=== PATIENT | female | born 1985 | race Caucasian/White ===

== ENCOUNTER 2018-08-30 14:21 | Observation (INO) ==
[2018-08-30 15:38] LABS: Basophils % 0.3 % (0.1-2.0); Eosinophils # 0.1 K/mm3 (0.0-0.4); Eosinophils % 1.1 % (0.1-12.0); Hematocrit 47.3 % (37.0-47.0); Hemoglobin 15.1 g/dL (12.2-16.2); Lymphocytes # 1.4 K/mm3 (0.7-4.5); Lymphocytes % 13.4 % (10-50); Mean Corpuscular HGB Conc 31.9 g/dL (31.8-35.4); Mean Corpuscular Hemoglobin 28.3 pg (27.0-31.2); Mean Corpuscular Volume 88.7 fl (81-99); Mean Platelet Volume 8.5 fl (7.4-10.4); Monocytes # 0.7 K/mm3 (0.1-1.0); Monocytes % 7.2 % (1.7-9.3); Neutrophils % 78.1 % (37.0-80.0); Platelet Count 287 K/mm3 (142-424); Red Blood Count 5.34 M/mm3 (4.20-5.40); Red Cell Distribution Width 14.4 % (11.5-17.5); White Blood Count 10.3 K/mm3 (4.8-10.8)
[2018-08-30 15:57] LABS: Albumin Level 3.5 gm/dL (3.4-5.0); Albumin/Globulin Ratio 0.7 (1.1-1.8); Anion Gap 10.8 mEq/L (5-15); Bilirubin,Total 1.3 mg/dL (0.2-1.0); Calcium 8.6 mg/dL (8.5-10.1); Globulin 5.1 gm/dl (1.3-3.2); Potassium 3.8 mmoL/L (3.5-5.1); Total Protein,Serum 8.6 gm/dL (6.4-8.2)
--- NOTE | 2018-08-30 20:50 | History & Physical Report ---
*Admission Date: 08/30/18 <Alina Nolan 08/30/18 20:59> *Chief complaint: hypoxia, nausea, vomiting <Alina Nolan 08/30/18 20:59> *History of present illness: Ms. Jolly is a 32-year-old female who has not been to [facility] in some time. She does currently go to a methadone clinic and this is her only medication. She does have a history of asthma and used to take Advair, however she has not had any asthma controller medicine for years. She continues to smoke. She states on Monday she began with a cough, fever, and shortness of breath. She then began having vomiting, diarrhea, and nausea. She lives with her sister and her sister states that she could hardly get her awake yesterday. The vomiting and diarrhea have subsided but the patient still felt very weak and was extremely short of breath. She presented to the office of [facility] today for evaluation and her oxygen ranged from 83-86% on room air. She was admitted for further evaluation and treatment. <Alina Nolan 08/30/18 20:59> [facility] History Medical History: Reports:: Asthma, Gall Bladder Disease <Alina Nolan 08/30/18 20:59> Other Surgeries: Yes: Cholecystectomy <Alina Nolan 08/30/18 20:59> - *Social History Smoking Status: Current every day smoker <Alina Nolan 08/30/18 20:59> Tobacco Type: cigarettes <Alina Nolan 08/30/18 20:59> # Packs/Day (cigarettes): 1 <Alina Nolan 08/30/18 20:59> Alcohol Intake: never <Alina Nolan 08/30/18 20:59> Substance Use Type: heroin <Alina Nolan 08/30/18 20:59> Occupational Status: employed <Alina Nolan 08/30/18 20:59> - Psychiatric History Expresses thoughts of harming self/others: None <Alina Nolan 08/30/18 20:59> Suicide Plan Description: No Plan <Alina Nolan 08/30/18 20:59> *Family Hx:: Coronary Artery Disease, Diabetes, Hyperlipidemia <Alina Nolan 08/30/18 20:59> Review of Systems - Constitutional Reports body ache(s), Reports chills, Reports fever(s), Reports weakness <Alina Nolan 08/30/18 20:59> - Eyes Denies blurry vision, Denies double vision <Alina Nolan 08/30/18 20:59> - ENT Reports nasal congestion, Reports sore throat <Alina Nolan 08/30/18 20:59> - *Cardiovascular Reports chest pain, Denies irregular heart rhythm <Alina Nolan 08/30/18 20:59> - *Respiratory Reports cough, Reports shortness of breath, Reports wheezing <[facility] 08/30/18 20:59> - *Gastrointestinal Reports abdominal pain, Reports loose stools, Reports nausea, Reports vomiting <Alina Nolan 08/30/18 20:59> - *Genitourinary Denies difficulty urinating, Denies painful urination <Alina Nolan 08/30/18 20:59> - *Musculoskeletal Reports body aches, Denies joint pain <Alina Nolan 08/30/18 20:59> - *Neurologic Reports dizziness, Reports weakness <Alina Nolan 08/30/18 20:59> Meds Home Medications Medication Instructions Recorded Confirmed Type Methadone HCl 100 mg PO DAILY 08/30/18 08/30/18 History <Rickie Sam - 08/31/18 00:37> Allergies Allergy/AdvReac Type Severity Reaction Status Date / Time morphine [MORPHINE] Allergy Intermediate Verified 08/30/18 15:19 <Rickie Sam - 08/31/18 00:37> Exam Vital signs and Labs for Last 24 Hours: Temp Pulse Resp BP Pulse Ox 98.0 F 102 H 18 128/75 90 L 08/30/18 19:51 08/30/18 20:00 08/30/18 19:51 08/30/18 19:51 08/30/18 21:21 Laboratory Results - last 24 hr 08/30/18 15:25: WBC 10.3, RBC 5.34, Hgb 15.1, Hct 47.3 H, MCV 88.7, MCH 28.3, MCHC 31.9, RDW 14.4, Plt Count 287, MPV 8.5, Neut % (Auto) 78.1, Lymph % (Auto) 13.4, [place] % (Auto) 7.2, Eos % (Auto) 1.1, Baso % (Auto) 0.3, Neut # (Auto) 8.0 H, Lymph # (Auto) 1.4, [place] # (Auto) 0.7, Eos # (Auto) 0.1, Baso # (Auto) 0.0 08/30/18 15:25: Sodium 138, Potassium 3.8, Chloride 98, Carbon Dioxide 33 H, Anion Gap 10.8, BUN 12, Creatinine 0.73, Estimated Creat Clear 166, Estimated GFR 92, Est GFR ( Amer) 111, Glucose 88, Calcium 8.6, Total Bilirubin 1.3 H, AST 14 L, ALT 29, Alkaline Phosphatase 94, Total Protein 8.6 H, Albumin 3.5, Globulin 5.1 H, Albumin/Globulin Ratio 0.7 L 08/30/18 15:25: D-Dimer < 100 <Rickie Sam - 08/31/18 00:37> Temp Pulse Resp BP Pulse Ox 98.0 F 102 H 18 128/75 91 L 08/30/18 19:51 08/30/18 19:51 08/30/18 19:51 08/30/18 19:51 08/30/18 19:51 Laboratory Results - last 24 hr 08/30/18 15:25: WBC 10.3, RBC 5.34, Hgb 15.1, Hct 47.3 H, MCV 88.7, MCH 28.3, MCHC 31.9, RDW 14.4, Plt Count 287, MPV 8.5, Neut % (Auto) 78.1, Lymph % (Auto) 13.4, [place] % (Auto) 7.2, Eos % (Auto) 1.1, Baso % (Auto) 0.3, Neut # (Auto) 8.0 H, Lymph # (Auto) 1.4, [place] # (Auto) 0.7, Eos # (Auto) 0.1, Baso # (Auto) 0.0 08/30/18 15:25: Sodium 138, Potassium 3.8, Chloride 98, Carbon Dioxide 33 H, Anion Gap 10.8, BUN 12, Creatinine 0.73, Estimated Creat Clear 166, Estimated GFR 92, Est GFR ( Amer) 111, Glucose 88, Calcium 8.6, Total Bilirubin 1.3 H, AST 14 L, ALT 29, Alkaline Phosphatase 94, Total Protein 8.6 H, Albumin 3.5, Globulin 5.1 H, Albumin/Globulin Ratio 0.7 L 08/30/18 15:25: D-Dimer < 100 <Alina Nolan - 08/30/18 20:59> I & O for Last 24 hours: Intake & Output 08/28/18 08/29/18 08/30/18 08/31/18 11:59 11:59 11:59 11:59 Intake Total 480 / 480 Balance 480 / 480 Weight 211 lb <Rickie Sam - 08/31/18 00:37> Intake & Output 08/28/18 08/29/18 08/30/18 08/31/18 11:59 11:59 11:59 11:59 Intake Total 480 / 480 Balance 480 / 480 [facility] 20:59> - Constitutional no acute distress <[facility] 08/30/18 20:59> - *Routine HEENT Exam Head: Present: normocephalic <[facility] 08/30/18 20:59> Eye: Present: EOMI, PERRL <[facility] 08/30/18 20:59> ENT: Present: mucous membranes dry <[facility] 08/30/18 20:59> - *Routine Neck Exam Present: supple. Absent: lymphadenopathy <[facility] 08/30/18 20:59> - *Routine Respiratory Exam Present: rhonchi, wheezes. Absent: crackles <[facility] 08/30/18 20:59> - *Routine Cardiovascular Exam Present: RRR, tachycardia <[facility] 08/30/18 20:59> - *Routine Abdominal Exam Present: soft, normoactive bowel sounds. Absent: tenderness <Alina Nolan 08/30/18 20:59> - *Routine Extremities Exam Absent: cyanosis, clubbing, edema <Alina Nolan 08/30/18 20:59> - *Routine Skin Exam Present: warm. Absent: rash <Alina Nolan - 08/30/18 20:59> - *Routine Neurological Exam Present: alert, oriented X3 <Alina Nolan - 08/30/18 20:59> H&P: Result - Impressions CXR - Patchy atelectasis or infiltrate in the left lower lobe <Alina Nolan - 08/30/18 20:59> Assessment and Plan (1) Pneumonia Current visit: Yes Status: Acute Category: Medical Code(s): J18.9 - Pneumonia, unspecified organism (2) Asthma Current visit: Yes Status: Chronic Category: Medical Code(s): J45.909 - Unspecified asthma, uncomplicated (3) Hypoxia Current visit: Yes Status: Acute Category: Medical Code(s): R09.02 - Hypoxemia (4) Gastroenteritis Current visit: Yes Status: Acute Category: Medical Code(s): K52.9 - Noninfective gastroenteritis and colitis, unspecified (5) History of drug abuse Current visit: Yes Status: Chronic Category: Medical Code(s): Z87.898 - Personal history of other specified conditions (6) Tobacco abuse Current visit: Yes Status: Chronic Category: Medical Code(s): Z72.0 - Tobacco use <Rickie Sam - 08/31/18 00:37> (1) Gastroenteritis Current visit: Yes Status: Acute Category: Medical Code(s): K52.9 - Noninfective gastroenteritis and colitis, unspecified (2) History of drug abuse Current visit: Yes Status: Chronic Category: Medical Code(s): Z87.898 - Personal history of other specified conditions (3) Pneumonia Current visit: Yes Status: Acute Category: Medical Code(s): J18.9 - Pneumonia, unspecified organism (4) Asthma Current visit: Yes Status: Chronic Category: Medical Code(s): J45.909 - Unspecified asthma, uncomplicated (5) Hypoxia Current visit: Yes Status: Acute Category: Medical Code(s): R09.02 - Hypoxemia (6) Tobacco abuse Current visit: Yes Status: Chronic Category: Medical Code(s): Z72.0 - Tobacco use <Alina Nolan - 08/30/18 20:46> - Assessment and plan all Dx Assessment and Plan for all problems:: Patient seen and examined this evening. SHe is breathing a little better since admission. Concur with above assessment and plan. <Rickie Sam - 08/31/18 00:37> Patient has been started on abx, steroids, nebs, oxygen and antiemetics. CXR suggests a pneumonia. Will await sputum and blood cultures. Will also get a respiratory panel. <Alina Nolan - 08/30/18 20:59>
[2018-08-31 06:17] LABS: Basophils % 0.1 % (0.1-2.0); Eosinophils % 0.2 % (0.1-12.0); Hematocrit 42.6 % (37.0-47.0); Lymphocytes # 0.8 K/mm3 (0.7-4.5); Lymphocytes % 10.5 % (10-50); Mean Corpuscular Hemoglobin 27.9 pg (27.0-31.2); Mean Corpuscular Volume 89.8 fl (81-99); Mean Platelet Volume 8.6 fl (7.4-10.4); Monocytes # 0.3 K/mm3 (0.1-1.0); Monocytes % 3.8 % (1.7-9.3); Neutrophils # 6.6 K/mm3 (1.8-7.8); Neutrophils % 85.5 % (37.0-80.0); Platelet Count 262 K/mm3 (142-424); Red Blood Count 4.75 M/mm3 (4.20-5.40); Red Cell Distribution Width 14.4 % (11.5-17.5); White Blood Count 7.8 K/mm3 (4.8-10.8)
[2018-08-31 06:21] LABS: Hemoglobin 13.3 g/dL (12.2-16.2)
--- NOTE | 2018-08-31 07:47 | Pharmacy Consult Notes ---
[facility] Pharmacy VTE Monitoring - Patient Demographics Admission date: 08/30/18 Report Date: 08/31/18 Time: 07:47 Allergies/Adverse Reactions: Patient Allergies morphine [MORPHINE] Allergy (Intermediate, Verified 08/30/18 15:19) Height: 1.65 m Weight: 95.283 kg Patient Problems: Current Active Problems Pneumonia (Acute) Asthma (Chronic) History of drug abuse (Chronic) Hypoxia (Acute) Gastroenteritis (Acute) Tobacco abuse (Chronic) - VTE Risk Labs: VTE Related Lab Results Hgb 13.3 g/dL (12.2-16.2) D 08/31/18 05:29 Hct 42.6 % (37.0-47.0) 08/31/18 05:29 Plt Count 262 K/mm3 (142-424) 08/31/18 05:29 BUN 12 mg/dL (7-18) 08/30/18 15:25 Creatinine 0.73 mg/dL (0.55-1.02) 08/30/18 15:25 Estimated Creat Clear 166 mL/min (50-200) 08/30/18 15:25 Clinical Trial Participant: No - Prophylaxis VTE Prophylaxis Ordered?: Yes Types of VTE Prophylaxis: TEDS Knee High Location of Applied Device: Bilateral Lower Extremeties
[2018-08-31 07:57] LABS: Lymphocytes % 9 % (10-50); Monocytes % 3 % (2-9); Neutrophils % 88 % (42-76); Total Cells Counted 100
--- NOTE | 2018-08-31 08:30 | Progress Note ---
<Alina Nolan - Last Filed: 08/31/18 08:25> Internal Medicine - PN: Subj *Date: 08/31/18 *Time: 08:26 Interval history: Patient states she is feeling better today. She is still wheezing and short of breath. She still has a cough. She denies any nausea, vomiting, or diarrhea. She did eat this am and did rest last night. Exam Vital signs and Labs for Last 24 Hours: Temp Pulse Resp BP Pulse Ox 98.1 F 85 19 108/58 L 90 L 08/31/18 00:00 08/31/18 06:45 08/31/18 00:00 08/31/18 00:00 08/31/18 06:45 Laboratory Results - last 24 hr 08/30/18 15:25: WBC 10.3, RBC 5.34, Hgb 15.1, Hct 47.3 H, MCV 88.7, MCH 28.3, MCHC 31.9, RDW 14.4, Plt Count 287, MPV 8.5, Neut % (Auto) 78.1, Lymph % (Auto) 13.4, [place] % (Auto) 7.2, Eos % (Auto) 1.1, Baso % (Auto) 0.3, Neut # (Auto) 8.0 H, Lymph # (Auto) 1.4, [place] # (Auto) 0.7, Eos # (Auto) 0.1, Baso # (Auto) 0.0 08/30/18 15:25: Sodium 138, Potassium 3.8, Chloride 98, Carbon Dioxide 33 H, Anion Gap 10.8, BUN 12, Creatinine 0.73, Estimated Creat Clear 166, Estimated GFR 92, Est GFR ( Amer) 111, Glucose 88, Calcium 8.6, Total Bilirubin 1.3 H, AST 14 L, ALT 29, Alkaline Phosphatase 94, Total Protein 8.6 H, Albumin 3.5, Globulin 5.1 H, Albumin/Globulin Ratio 0.7 L 08/30/18 15:25: D-Dimer < 100 08/31/18 05:29: WBC 7.8, RBC 4.75, Hgb 13.3 D, Hct 42.6, MCV 89.8, MCH 27.9, MCHC 31.0 L, RDW 14.4, Plt Count 262, MPV 8.6, Neut % (Auto) 85.5 H, Lymph % (Auto) 10.5, [place] % (Auto) 3.8, Eos % (Auto) 0.2, Baso % (Auto) 0.1, Neut # (Auto) 6.6, Lymph # (Auto) 0.8, [place] # (Auto) 0.3, Eos # (Auto) 0.0, Baso # (Auto) 0.0, Total Counted 100, Neutrophils % (Manual) 88 H, Lymphocytes % (Manual) 9 L, Monocytes % (Manual) 3, Platelet Estimate Normal, RBC Morphology Not Reportable I & O for Last 24 hours: Intake & Output 08/28/18 08/29/18 08/30/18 08/31/18 11:59 11:59 11:59 11:59 Intake Total 2434 / 2434 Balance 2434 / 2434 Weight 210 lb 1 oz - Constitutional no acute distress - *Routine Respiratory Exam Present: rhonchi, wheezes - *Routine Cardiovascular Exam Present: RRR - *Routine Abdominal Exam Present: soft, normoactive bowel sounds. Absent: tenderness - *Routine Extremities Exam Absent: cyanosis, clubbing, edema Assessment and Plan (1) Pneumonia Current visit: Yes Status: Acute Category: Medical Code(s): J18.9 - Pneumonia, unspecified organism (2) Asthma Current visit: Yes Status: Chronic Category: Medical Code(s): J45.909 - Unspecified asthma, uncomplicated (3) Hypoxia Current visit: Yes Status: Acute Category: Medical Code(s): R09.02 - Hypoxemia (4) Gastroenteritis Current visit: Yes Status: Acute Category: Medical Code(s): K52.9 - Noninfective gastroenteritis and colitis, unspecified (5) History of drug abuse Current visit: Yes Status: Chronic Category: Medical Code(s): Z87.898 - Personal history of other specified conditions (6) Tobacco abuse Current visit: Yes Status: Chronic Category: Medical Code(s): Z72.0 - Tobacco use - Assessment and plan all Dx Assessment and Plan for all problems:: Patient is improving. We will continue current treatment. Still awaiting PCR respiratory panel. Will start patient on her methadone daily. <Rickie Sam - Last Filed: 08/31/18 23:41> Exam Vital signs and Labs for Last 24 Hours: Temp Pulse Resp BP Pulse Ox 97.9 F 97 H 20 127/80 97 08/31/18 20:00 08/31/18 20:00 08/31/18 20:00 08/31/18 20:00 08/31/18 20:00 Laboratory Results - last 24 hr 08/31/18 05:29: WBC 7.8, RBC 4.75, Hgb 13.3 D, Hct 42.6, MCV 89.8, MCH 27.9, MCHC 31.0 L, RDW 14.4, Plt Count 262, MPV 8.6, Neut % (Auto) 85.5 H, Lymph % (Auto) 10.5, [place] % (Auto) 3.8, Eos % (Auto) 0.2, Baso % (Auto) 0.1, Neut # (Auto) 6.6, Lymph # (Auto) 0.8, [place] # (Auto) 0.3, Eos # (Auto) 0.0, Baso # (Auto) 0.0, Total Counted 100, Neutrophils % (Manual) 88 H, Lymphocytes % (Manual) 9 L, Monocytes % (Manual) 3, Platelet Estimate Normal, RBC Morphology Not Reportable 08/31/18 10:15: Chlamy pneumoniae PCR Not detected, Adenovirus (PCR) Not detected, B. pertussis DNA (PCR) Not detected, Coronavirus OC43 (PCR) Not detected, Coronavirus HKU1 (PCR) Not detected, Coronavirus 229E (PCR) Not detected, Coronavirus NL63 (PCR) Not detected, Human Metapneumovir PCR Not detected, Influenza A (H1) PCR Not detected, Influ A (H1N1/09) PCR Not detected, Influenza A (H3) PCR Not detected, Influenza Type A (PCR) Not detected, Influenza Type B (PCR) Not detected, M. pneumoniae (PCR) Not detected, Parainfluenza 1 (PCR) Not detected, Parainfluenza 2 (PCR) Not detected, Parainfluenza 3 (PCR) Not detected, Parainfluenza 4 (PCR) Not detected, RSV (PCR) Not detected, Entero/Rhino (PCR) Detected A I & O for Last 24 hours: Intake & Output 08/29/18 08/30/18 08/31/18 09/01/18 11:59 11:59 11:59 11:59 Intake Total 2913 / 2913 Balance 2913 / 2913 Weight 210 lb 1 oz Assessment and Plan (1) Pneumonia Current visit: Yes Status: Acute Category: Medical Code(s): J18.9 - Pneumonia, unspecified organism (2) Asthma Current visit: Yes Status: Chronic Category: Medical Code(s): J45.909 - Unspecified asthma, uncomplicated (3) Hypoxia Current visit: Yes Status: Acute Category: Medical Code(s): R09.02 - Hypoxemia (4) Gastroenteritis Current visit: Yes Status: Acute Category: Medical Code(s): K52.9 - Noninfective gastroenteritis and colitis, unspecified (5) History of drug abuse Current visit: Yes Status: Chronic Category: Medical Code(s): Z87.898 - Personal history of other specified conditions (6) Tobacco abuse Current visit: Yes Status: Chronic Category: Medical Code(s): Z72.0 - Tobacco use - Assessment and plan all Dx Assessment and Plan for all problems:: Patient seen and examined this AM. No new complaints. Lungs with bilateral coarse rhonchi and fewer wheezes. Will continue same pending cultures and PCR.
[2018-08-31 10:25] LABS: Coronavirus 229E Not Detected (NotDetected); Coronavirus NL63 Not Detected (NotDetected); Coronavirus OC43 Not Detected (NotDetected); Coronovirus HKU1,PCR Not Detected (NotDetected)
--- NOTE | 2018-09-01 08:44 | Progress Note ---
Internal Medicine - PN: Subj *Date: 09/01/18 *Time: 08:41 Interval history: She has some issues with upset stomach and diarrhea yesterday. No vomiting. She has not had much appetite. Denies abdominal pain. She feels that she is breathing better. She still has some cough which is mostly nonproductive and has not been able to submit a sputum specimen. She is still hypoxic on room air. Exam Vital signs and Labs for Last 24 Hours: Temp Pulse Resp BP Pulse Ox 97.5 F L 79 20 131/86 96 09/01/18 08:00 09/01/18 08:00 09/01/18 08:00 09/01/18 08:00 09/01/18 08:00 Laboratory Results - last 24 hr 08/31/18 10:15: Chlamy pneumoniae PCR Not detected, Adenovirus (PCR) Not detected, B. pertussis DNA (PCR) Not detected, Coronavirus OC43 (PCR) Not detected, Coronavirus HKU1 (PCR) Not detected, Coronavirus 229E (PCR) Not detected, Coronavirus NL63 (PCR) Not detected, Human Metapneumovir PCR Not detected, Influenza A (H1) PCR Not detected, Influ A (H1N1/09) PCR Not detected, Influenza A (H3) PCR Not detected, Influenza Type A (PCR) Not detected, Influenza Type B (PCR) Not detected, M. pneumoniae (PCR) Not detected, Parainfluenza 1 (PCR) Not detected, Parainfluenza 2 (PCR) Not detected, Parainfluenza 3 (PCR) Not detected, Parainfluenza 4 (PCR) Not detected, RSV (PCR) Not detected, Entero/Rhino (PCR) Detected A I & O for Last 24 hours: Intake & Output 08/29/18 08/30/18 08/31/18 09/01/18 11:59 11:59 11:59 11:59 Intake Total 4117 / 4117 2355 / 2355 Balance 4117 / 4117 2355 / 2355 Weight 210 lb 1 oz Narrative: She is sitting up in bed alert and oriented and in no respiratory distress. Color is normal. Chest reveals improved breath sounds with persistent bilateral rhonchi and only a few faint wheezes. Assessment and Plan (1) Pneumonia Current visit: Yes Status: Acute Category: Medical Code(s): J18.9 - Pneumonia, unspecified organism (2) Asthma with acute exacerbation Current visit: Yes Status: Acute Category: Medical Code(s): J45.901 - Unspecified asthma with (acute) exacerbation (3) Hypoxia Current visit: Yes Status: Acute Category: Medical Code(s): R09.02 - Hypoxemia (4) Gastroenteritis Current visit: Yes Status: Acute Category: Medical Code(s): K52.9 - Noninfective gastroenteritis and colitis, unspecified (5) History of drug abuse Current visit: Yes Status: Chronic Category: Medical Code(s): Z87.898 - Personal history of other specified conditions (6) Tobacco abuse Current visit: Yes Status: Chronic Category: Medical Code(s): Z72.0 - Tobacco use - Assessment and plan all Dx Assessment and Plan for all problems:: Continue current antibiotics. Switch to oral steroids. Attempt to wean to room oxygen. Discontinue IV fluids.
--- NOTE | 2018-09-02 08:30 | Progress Note ---
Internal Medicine - PN: Subj Interval history: She was weaned to room air yesterday with sats staying in the mid 90s. She still has a dry cough. She is tolerating activity in the room. She is eager to go Exam Vital signs and Labs for Last 24 Hours: Temp Pulse Resp BP Pulse Ox 97.3 F L 74 17 148/99 H 97 09/02/18 08:00 09/02/18 08:00 09/02/18 08:00 09/02/18 08:00 09/02/18 08:00 I & O for Last 24 hours: Intake & Output 08/30/18 08/31/18 09/01/18 09/02/18 11:59 11:59 11:59 11:59 Intake Total 4117 / 4117 2355 / 2355 2171 / 2171 Balance 4117 / 4117 2355 / 2355 2171 / 2171 Weight 210 lb 1 oz Microbiology Reports for the Last 24 Hours: Microbiology 08/30/18 17:37 Blood Blood Culture - Preliminary NO GROWTH AFTER 48 HOURS 08/30/18 17:30 Blood Blood Culture - Preliminary NO GROWTH AFTER 48 HOURS Narrative: No respiratory distress. Color is normal. Chest reveals bilateral wheezes and a few rhonchi. Assessment and Plan (1) Pneumonia Current visit: Yes Status: Acute Category: Medical Code(s): J18.9 - Pneumonia, unspecified organism (2) Asthma with acute exacerbation Current visit: Yes Status: Acute Category: Medical Code(s): J45.901 - Unspecified asthma with (acute) exacerbation (3) Hypoxia Current visit: Yes Status: Acute Category: Medical Code(s): R09.02 - Hypoxemia (4) Gastroenteritis Current visit: Yes Status: Acute Category: Medical Code(s): K52.9 - Noninfective gastroenteritis and colitis, unspecified (5) History of drug abuse Current visit: Yes Status: Chronic Category: Medical Code(s): Z87.898 - Personal history of other specified conditions (6) Tobacco abuse Current visit: Yes Status: Chronic Category: Medical Code(s): Z72.0 - Tobacco use - Assessment and plan all Dx Assessment and Plan for all problems:: She will be discharged home. She will continue on antibiotics and oral steroids. Will remain off work. She will follow-up in the office in 2 days for recheck.
--- NOTE | 2018-09-03 11:28 | Discharge Summary ---
General - General Admission date:: 08/30/18 Discharge date: 09/02/18 HPI HPI: Ms. Jolly is a 32-year-old female who has not been to [facility] in some time. She does currently go to a methadone clinic and this is her only medication. She does have a history of asthma and used to take Advair, however she has not had any asthma controller medicine for years. She continues to smoke. She states on Monday she began with a cough, fever, and shortness of breath. She then began having vomiting, diarrhea, and nausea. She lives with her sister and her sister states that she could hardly get her awake yesterday. The vomiting and diarrhea have subsided but the patient still felt very weak and was extremely short of breath. She presented to the office of [facility] today for evaluation and her oxygen ranged from 83-86% on room air. She was admitted for further evaluation and treatment. Hospital Course Hospital Course: The patient's chest x-ray showed a left lower lobe pneumonia. She was started on antibiotics, steroids, nebs, oxygen, and anti-medics. Sputum and blood cultures were ordered as well as a respiratory panel. Her nausea and vomiting resolved. Her PCR respiratory panel was positive for entero/rhinovirus. Her blood cultures were negative. She was able to be weaned from IV to oral steroids. Her IV fluids were discontinued and she was weaned to room air oxygen. She was able to tolerate activity in her room and was anxious to go home. She was stable to be discharged on steroids and antibiotics and will need to follow-up in the office in 2 days. Objective Vital signs: Temp Pulse Resp BP Pulse Ox 97.3 F L 74 17 148/99 H 97 09/02/18 08:00 09/02/18 08:00 09/02/18 08:00 09/02/18 08:00 09/02/18 08:00 Narrative: - Constitutional no acute distress - *Routine HEENT Exam Head: Present: normocephalic Eye: Present: EOMI, PERRL ENT: Present: mucous membranes dry - *Routine Neck Exam Present: supple. Absent: lymphadenopathy - *Routine Respiratory Exam Present: rhonchi, wheezes. Absent: crackles - *Routine Cardiovascular Exam Present: RRR, tachycardia - *Routine Abdominal Exam Present: soft, normoactive bowel sounds. Absent: tenderness - *Routine Extremities Exam Absent: cyanosis, clubbing, edema - *Routine Skin Exam Present: warm. Absent: rash - *Routine Neurological Exam Present: alert, oriented X3 Results Labs on day of discharge: Preliminary micro results at discharge 08/30/18 17:37 Blood Culture - Preliminary Blood NO GROWTH AFTER 48 HOURS 08/30/18 17:30 Blood Culture - Preliminary Blood NO GROWTH AFTER 48 HOURS DS: Diagnosis - Discharge Diagnosis (1) Pneumonia Status: Acute (2) Asthma with acute exacerbation Status: Acute (3) Hypoxia Status: Acute (4) Gastroenteritis Status: Acute (5) History of drug abuse Status: Chronic (6) Tobacco abuse Status: Chronic (7) Rhinovirus Status: Acute (8) Asthma Status: Chronic Discharge Plan - Patient Discharge Instructions ACTIVITY: Limited activity (remain off work until followed up in office) DIET: continue same diet Additional Instructions: no work until after follow up with dr. sam. make appointment for the 11th Patient Instructions: DI for Asthma -- Adult, DI for Pneumonia -- Adult - Follow up Plan Follow up with: Rickie Sam MD [Primary Care Provider] - 09/04/18 Disposition: Home, Self-Intermediate Medications: Home Medications Medication Instructions Recorded Confirmed Type Methadone HCl 100 mg PO DAILY 08/30/18 08/30/18 History Prescriptions/Medication Reconciliation: New Benzonatate [Benzonatate 200mg Cap] 200 mg PO Q6HP PRN #24 cap PRN Reason: Cough cefUROXime axetil [Ceftin 500mg Tab (GEQ)] 500 mg PO BID #14 tab predniSONE [Prednisone 20mg Tab] 20 mg PO DIRECTED #18 tab Albuterol Sulfate [Proventil-HFA 90mcg/puff Inh] 2 puffs IH QID #1 inh Continue Methadone HCl 100 mg PO DAILY
== END 2018-09-02 11:30 | disposition home or self-care (01) ==
LOC: 2ND
PROVIDERS: ADMIT Family Medicine; ATTEND Family Medicine

== ENCOUNTER 2018-10-10 14:50 | Inpatient (IN) ==
[2018-10-10 15:40] LABS: Basophils % 0.5 % (0.1-2.0); Eosinophils # 0.1 K/mm3 (0.0-0.4); Eosinophils % 1.3 % (0.1-12.0); Hematocrit 40.6 % (37.0-47.0); Hemoglobin 13.1 g/dL (12.2-16.2); Lymphocytes % 13.4 % (10-50); Mean Corpuscular HGB Conc 32.2 g/dL (31.8-35.4); Mean Corpuscular Hemoglobin 28.6 pg (27.0-31.2); Mean Corpuscular Volume 88.9 fl (81-99); Mean Platelet Volume 8.6 fl (7.4-10.4); Monocytes # 0.3 K/mm3 (0.1-1.0); Monocytes % 4.3 % (1.7-9.3); Neutrophils % 80.5 % (37.0-80.0); Platelet Count 246 K/mm3 (142-424); Red Blood Count 4.57 M/mm3 (4.20-5.40); White Blood Count 7.5 K/mm3 (4.8-10.8)
[2018-10-10 15:52] LABS: Albumin Level 3.4 gm/dL (3.4-5.0); Albumin/Globulin Ratio 0.8 (1.1-1.8); Anion Gap 10.3 mEq/L (5-15); Bilirubin,Total 1.2 mg/dL (0.2-1.0); Calcium 8.6 mg/dL (8.5-10.1); Globulin 4.3 gm/dl (1.3-3.2); Potassium 4.3 mmoL/L (3.5-5.1); Total Protein,Serum 7.7 gm/dL (6.4-8.2)
[2018-10-10 15:56] LABS: Coronavirus 229E Not Detected (NotDetected); Coronavirus NL63 Not Detected (NotDetected); Coronavirus OC43 Not Detected (NotDetected); Coronovirus HKU1,PCR Not Detected (NotDetected)
--- NOTE | 2018-10-10 17:10 | History & Physical Report ---
*Admission Date: 10/10/18 <Alina Nolan 10/10/18 17:17> *Chief complaint: shortness of breath, cough, vomiting <Alina Nolan 10/10/18 17:17> *History of present illness: Ms. Jolly is a 32-year-old female with a history of drug abuse who is currently on methadone, asthma, and tobacco abuse. She was just recently discharged from [facility] after an admission for pneumonia. The patient states she improved and was feeling well up until yesterday when she began getting short of breath and developed a cough. She began wheezing and used her inhaler at home with no relief. She went to her methadone clinic this morning and they checked her oxygen and it was 84% on room air. They felt she looked slightly dehydrated and gave her some water and she vomited. They felt she needed to be seen by her family physician, therefore she presented to our office. Her oxygen was 84% on room air in the office and increased to 88% after a nebulizer treatment. She also has had lower extremity edema for the past month and states her lower legs have been getting red. She was admitted and started on IV antibiotics, duo nebs, oxygen, and Phenergan. <Alina Nolan 10/10/18 17:17> [facility] History Medical History: Reports:: Asthma, Gall Bladder Disease Denies:: Cancer, Diabetes Mellitus Type 1, Diabetes Mellitus Type 2 <Alina Nolan 10/10/18 17:10> Have you ever received a pneumonia vaccine?: No <Alina Nolan 10/10/18 17:10> Have you received a flu vaccine this season?: No <Alina Nolan 10/10/18 17:10> Other Surgeries: Yes: Cholecystectomy <Alina Nolan 10/10/18 17:10> - *Social History Educational Level: Completed High School <Alina Nolan 10/10/18 17:10> Smoking Status: Current every day smoker <Alina Nolan 10/10/18 17:10> Tobacco Type: cigarettes <Alina Nolan 10/10/18 17:10> # Packs/Day (cigarettes): 1 <Alina Nolan 10/10/18 17:10> #Yrs smoked (if former smoker): 10 <AnAlina 10/10/18 17:10> Alcohol Intake: never <AnAlina 10/10/18 17:10> Substance Use Type: heroin [facility] 10/10[facility]10> Occupational Status: employed <AnAlina 10/10/18 17:10> Housing: house <AnAlina 10/10/18 17:10> Household Members: family <AnAlina 10/10/18 17:10> Travel in the last 8 weeks: None <AnAlina 10/10/18 17:10> - Psychiatric History Expresses thoughts of harming self/others: None <AnAlina 10/10/18 17:10> Suicide Plan Description: No Plan <AnAlina 10/10/18 17:10> *Family Hx:: Coronary Artery Disease, Diabetes, Hyperlipidemia <[facility] 10/10/18 17:10> Review of Systems - Constitutional Reports body ache(s), Reports chills, Reports fever(s), Reports weakness <[facility] 10/10/18 17:17> - Eyes Denies blurry vision, Denies double vision <[facility] 10/10/18 17:17> - ENT Reports nasal congestion, Reports sore throat <[facility] 10/10/18 17:17> - *Cardiovascular Reports leg swelling, Denies chest pain, Denies rapid, pounding, or irregular heartbeat <[facility] 10/10/18 17:17> - *Respiratory Reports cough, Reports shortness of breath, Reports wheezing <[facility] 10/10/18 17:17> - *Gastrointestinal Reports abdominal pain, Reports nausea, Reports vomiting, Denies loose stools <[facility] 10/10/18 17:17> - *Genitourinary Denies difficulty urinating, Denies painful urination <[facility] 10/10/18 17:17> - *Musculoskeletal Denies joint pain <[facility] 10/10/18 17:17> - *Neurologic Reports weakness, Denies headache(s) <[facility] 10/10/18 17:17> Meds Home Medications Medication Instructions Recorded Confirmed Type Methadone HCl 100 mg PO DAILY 08/30/18 10/11/18 History Albuterol Sulfate [Proventil-HFA 2 puffs IH QID 10/10/18 10/11/18 History 90mcg/puff Inh] <Kymberly Mendez 10/11/18 09:03> Allergies Allergy/AdvReac Type Severity Reaction Status Date / Time morphine [MORPHINE] Allergy Intermediate Verified 08/30/18 15:19 <[facility] 10/11/[facility] 09:03> Exam Vital signs and Labs for Last 24 Hours: Temp Pulse Resp BP Pulse Ox 97.8 F 94 H 20 116/85 92 L 10/11/18 08:00 10/11/18 08:00 10/11/18 08:00 10/11/18 08:00 10/11/18 08:00 Laboratory Results - last 24 hr 10/10/18 15:25: WBC 7.5, RBC 4.57, Hgb 13.1, Hct 40.6, MCV 88.9, MCH 28.6, MCHC 32.2, RDW 14.0, Plt Count 246, MPV 8.6, Neut % (Auto) 80.5 H, Lymph % (Auto) 13.4, Moody % (Auto) 4.3, Eos % (Auto) 1.3, Baso % (Auto) 0.5, Neut # (Auto) 6.0, Lymph # (Auto) 1.0, Moody # (Auto) 0.3, Eos # (Auto) 0.1, Baso # (Auto) 0.0 10/10/18 15:25: Sodium 138, Potassium 4.3, Chloride 100, Carbon Dioxide 32, Anion Gap 10.3, BUN 9, Creatinine 0.66, Estimated Creat Clear 194, Estimated GFR 103, Est GFR ( Amer) 125, Glucose 93, Calcium 8.6, Total Bilirubin 1.2 H , AST 17, ALT 32, Alkaline Phosphatase 88, Total Protein 7.7, Albumin 3.4, Globulin 4.3 H, Albumin/Globulin Ratio 0.8 L 10/10/18 15:25: Lactate 1.1 10/10/18 15:25: Mycoplasma pneumon IgM Non-reactive 10/10/18 15:25: D-Dimer 134 10/10/18 15:25: B-Natriuretic Peptide < 5 10/10/18 15:50: Chlamy pneumoniae PCR Not detected, Adenovirus (PCR) Not detected, B. pertussis DNA (PCR) Not detected, Coronavirus OC43 (PCR) Not detected, Coronavirus HKU1 (PCR) Not detected, Coronavirus 229E (PCR) Not detected, Coronavirus NL63 (PCR) Not detected, Human Metapneumovir PCR Not detected, Influenza A (H1) PCR Not detected, Influ A (H1N1/09) PCR Not detected, Influenza A (H3) PCR Not detected, Influenza Type A (PCR) Not detected, Influenza Type B (PCR) Not detected, M. pneumoniae (PCR) Not detected, Parainfluenza 1 (PCR) Not detected, Parainfluenza 2 (PCR) Not detected, Parainfluenza 3 (PCR) Not detected, Parainfluenza 4 (PCR) Not detected, RSV (PCR) Detected A, Entero/Rhino (PCR) Not detected <Sound,Kymberly - 10/11/18 09:03> Temp Pulse Resp BP Pulse Ox 98.2 F 111 H 20 142/85 H 90 L 10/10/18 15:01 10/10/18 16:51 10/10/18 15:01 10/10/18 15:10/10/18 16:51 Laboratory Results - last 24 hr 10/10/18 15:25: WBC 7.5, RBC 4.57, Hgb 13.1, Hct 40.6, MCV 88.9, MCH 28.6, MCHC 32.2, RDW 14.0, Plt Count 246, MPV 8.6, Neut % (Auto) 80.5 H, Lymph % (Auto) 13.4, Moody % (Auto) 4.3, Eos % (Auto) 1.3, Baso % (Auto) 0.5, Neut # (Auto) 6.0, Lymph # (Auto) 1.0, Moody # (Auto) 0.3, Eos # (Auto) 0.1, Baso # (Auto) 0.0 10/10/18 15:25: Sodium 138, Potassium 4.3, Chloride 100, Carbon Dioxide 32, Anion Gap 10.3, BUN 9, Creatinine 0.66, Estimated Creat Clear 194, Estimated GFR 103, Est GFR ( Amer) 125, Glucose 93, Calcium 8.6, Total Bilirubin 1.2 H , AST 17, ALT 32, Alkaline Phosphatase 88, Total Protein 7.7, Albumin 3.4, Gl obulin 4.3 H, Albumin/Globulin Ratio 0.8 L 10/10/18 15:25: Lactate 1.1 10/10/18 15:25: Mycoplasma pneumon IgM Non-reactive 10/10/18 15:25: D-Dimer 134 10/10/18 15:25: B-Natriuretic Peptide < 5 [facility] [place] 10/10/18 17:10> I & O for Last 24 hours: Intake & Output 10/08/18 10/09/18 10/10/18 10/11/18 11:59 11:59 11:59 11:59 Intake Total 480 / 480 Output Total 1050 / 1050 Balance -570 / -570 Weight 221 lb 4 oz <AndreaKymberly - 10/11/18 09:03> Intake & Output 10/08/18 10/09/18 10/10/18 10/11/18 11:59 11:59 11:59 11:59 Weight 223 lb 4 oz [facility] [place] 10/10/18 17:10> - Constitutional Comments: Does not appear to feel well [facility] [place] 10/10/18 17:17> - *Routine HEENT Exam Head: Present: normocephalic, atraumatic [facility] [place] 10/10/18 17:17> Eye: Present: EOMI, PERRL [facility] [place] 10/10/18 17:17> ENT: Present: mucous membranes dry [facility] [place] 10/10/18 17:17> - *Routine Neck Exam Present: supple. Absent: lymphadenopathy [facility] [place] 10/10/18 17:17> - *Routine Respiratory Exam Present: wheezes. Absent: rales [facility] [place] 10/10/18 17:17> - *Routine Cardiovascular Exam Present: RRR, tachycardia [facility] [place] 10/10/18 17:17> - *Routine Abdominal Exam Present: soft, normoactive bowel sounds. Absent: tenderness <Alina Nolan - 10/10/18 17:17> - *Routine Extremities Exam Present: edema (2-3+ bilateral LE edema) <Alina Nolan 10/10/18 17:17> - *Routine Skin Exam Present: warm. Absent: rash <Alina Nolan 10/10/18 17:17> - *Routine Neurological Exam Present: alert, oriented X3 <Alina Nolan 10/10/18 17:17> Assessment and Plan (1) RSV (respiratory syncytial virus infection) (2) Pneumonia (3) Hypoxia Current visit: No Status: Acute Category: Medical Code(s): R09.02 - Hypoxemia (4) Bilateral lower extremity edema Current visit: Yes Status: Acute Category: Medical Code(s): R60.0 - Localized edema (5) Asthma with acute exacerbation Current visit: No Status: Acute Category: Medical Code(s): J45.901 - Unspecified asthma with (acute) exacerbation (6) History of drug abuse Current visit: No Status: Chronic Category: Medical Code(s): Z87.898 - Personal history of other specified conditions (7) Tobacco abuse Current visit: No Status: Chronic Category: Medical Code(s): Z72.0 - Tobacco use <Alina Nolan 10/10/18 17:17> (1) Acute respiratory failure with hypoxia Current visit: Yes Status: Acute Category: Medical Code(s): J96.01 - Acute respiratory failure with hypoxia (2) RSV (respiratory syncytial virus infection) Current visit: Yes Status: Acute Category: Medical Code(s): B97.4 - Respiratory syncytial virus as the cause of diseases classified elsewhere (3) Pneumonia Current visit: No Status: Acute Category: Medical Code(s): J18.9 - Pneumonia, unspecified organism (4) Hypoxia Current visit: No Status: Acute Category: Medical Code(s): R09.02 - Hypoxemia (5) Bilateral lower extremity edema Current visit: Yes Status: Acute Category: Medical Code(s): R60.0 - Localized edema (6) Asthma with acute exacerbation Current visit: No Status: Acute Category: Medical Code(s): J45.901 - Unspecified asthma with (acute) exacerbation (7) History of drug abuse Current visit: No Status: Chronic Category: Medical Code(s): Z87.898 - Personal history of other specified conditions (8) Tobacco abuse Current visit: No Status: Chronic Category: Medical Code(s): Z72.0 - Tobacco use <Kymberly Mendez - 10/11/18 09:03> - Assessment and plan all Dx Assessment and Plan for all problems:: Agree with above. Will adjust management based on her labs results. It seems like patient's acute respiratory failure (patient's oxygen was 84% RA in office and she doesn't use home oxygen) is secondary to RSV at this point. Will get Echo to r/o HFrEF or HFpEF. Dr. Sam to follow patient in the hospital. <Kymberly Mendez - 10/11/18 09:03> Dr. Mendez saw the patient in the office as well. A bilateral lower extremity venous Doppler, CTA, and echo were ordered due to her hypoxia and lower extremity edema. She was started on Zithromax, Rocephin, duo nebs, oxygen, and steroids for her asthma exacerbation. Awaiting CTA results to make sure she does not have a pneumonia. She was also given Lovenox at 1 mg/kg to cover for a DVT/PE and labs as well as a PCR respiratory panel were ordered. <Alina Nolan - 10/10/18 17:20>
--- NOTE | 2018-10-10 17:23 | Non-Invasive Vascular Report ---
"Venous Exam Indications: 729.81 Swelling of limb. IMPRESSIONS 1. There is no evidence of significant Reflux. 2. No evidence of deep or superficial vein thrombosis involving the right lower extremity and left lower extremity History: Swelling of the left lower extremity. Edema of the left leg. Dyspnea. Hypoxia. Asthma. Risk factors: Current tobacco use. Obese. Patient denies any trauma. Complete lower extremity venous duplex evaluation. Doppler flow study including spectral analysis, color and talbert scale imaging. Location: Vascular laboratory. Patient status: Inpatient. Tables: Venous flow and imaging: + +-------+ + |Location |Overall|Flow properties | + +-------+ + |Right common femoral |Patent |Normal phasicity; spontaneous; | | | |normal augmentation; compressible| + +-------+ + |Right saphenofemoral junction|Patent |Compressible | + +-------+ + |Right profunda femoral |Patent |Compressible | + +-------+ + |Right femoral |Patent |Normal phasicity; spontaneous; | | | |normal augmentation; | | | |compressible; no reflux | + +-------+ + |Right greater saphenous |Patent |Normal phasicity; spontaneous; | | | |normal augmentation; compressible| + +-------+ + |Right popliteal |Patent |Normal phasicity; spontaneous; | | | |normal augmentation; compressible| + +-------+ + |Right posterior tibial |Patent |Compressible | + +-------+ + |Right peroneal |Patent |Compressible | + +-------+ + |Right gastrocnemius |Patent |Compressible | + +-------+ + |Right soleal |Patent |Compressible | + +-------+ + |Left common femoral |Patent |Normal phasicity; spontaneous; | | | |normal augmentation; compressible| + +-------+ + |Left saphenofemoral junction |Patent |Compressible | + +-------+ + |Left profunda femoral |Patent |Compressible | + +-------+ + |Left femoral |Patent |Normal phasicity; spontaneous; | | | |normal augmentation; compressible| + +-------+ + |Left greater saphenous |Patent |Normal phasicity; spontaneous; | | | |normal augmentation; compressible| + +-------+ + |Left popliteal |Patent |Normal phasicity; spontaneous; | | | |normal augmentation; compressible| + +-------+ + |Left posterior tibial |Patent |Compressible | + +-------+ + |Left peroneal |Patent |Compressible | + +-------+ + |Left gastrocnemius |Patent |Compressible | + +-------+ + |Left soleal |Patent |Compressible | + +-------+ + (Report amended ) Electronically signed by: Yosi Ribeiro [id number]"
--- NOTE | 2018-10-11 07:42 | Pharmacy Consult Notes ---
[facility] Pharmacy VTE Monitoring - Patient Demographics Admission date: 10/11/18 Report Date: 10/11/18 Time: 07:41 Allergies/Adverse Reactions: Patient Allergies morphine [MORPHINE] Allergy (Intermediate, Verified 08/30/18 15:19) Height: 1.65 m Weight: 100.357 kg Patient Problems: Current Active Problems Bilateral lower extremity edema (Acute) - VTE Risk Labs: VTE Related Lab Results Hgb 13.1 g/dL (12.2-16.2) 10/10/18 15:25 Hct 40.6 % (37.0-47.0) 10/10/18 15:25 Plt Count 246 K/mm3 (142-424) 10/10/18 15:25 BUN 9 mg/dL (7-18) 10/10/18 15:25 Creatinine 0.66 mg/dL (0.55-1.02) 10/10/18 15:25 Estimated Creat Clear 194 mL/min (50-200) 10/10/18 15:25 Was VTE Risk Assessment Performed: Yes Clinical Trial Participant: No - Prophylaxis VTE Prophylaxis Ordered?: Yes Types of VTE Prophylaxis: TEDS Knee High Location of Applied Device: Bilateral Lower Extremeties
--- NOTE | 2018-10-11 08:29 | Progress Note ---
<Alina Nolan - Last Filed: 10/11/18 08:26> Internal Medicine - PN: Subj *Date: 10/11/18 *Time: 08:26 Interval history: Patient states she is doing better today. She thinks her fever broke throughout the night. She is still coughing and short of breath but it has improved from yesterday. Her wheezing has improved. She is tolerating a diet and has been up urinating most of the night. She has had no further vomiting. The swelling in her legs has decreased. Exam Vital signs and Labs for Last 24 Hours: Temp Pulse Resp BP Pulse Ox 98.4 F 100 H 20 127/88 91 L 10/11/18 04:00 10/11/18 06:30 10/11/18 04:00 10/11/18 04:00 10/11/18 06:30 Laboratory Results - last 24 hr 10/10/18 15:25: WBC 7.5, RBC 4.57, Hgb 13.1, Hct 40.6, MCV 88.9, MCH 28.6, MCHC 32.2, RDW 14.0, Plt Count 246, MPV 8.6, Neut % (Auto) 80.5 H, Lymph % (Auto) 13.4, Bay % (Auto) 4.3, Eos % (Auto) 1.3, Baso % (Auto) 0.5, Neut # (Auto) 6.0, Lymph # (Auto) 1.0, Bay # (Auto) 0.3, Eos # (Auto) 0.1, Baso # (Auto) 0.0 10/10/18 15:25: Sodium 138, Potassium 4.3, Chloride 100, Carbon Dioxide 32, Anion Gap 10.3, BUN 9, Creatinine 0.66, Estimated Creat Clear 194, Estimated GFR 103, Est GFR ( Amer) 125, Glucose 93, Calcium 8.6, Total Bilirubin 1.2 H, AST 17, ALT 32, Alkaline Phosphatase 88, Total Protein 7.7, Albumin 3.4, Globulin 4.3 H, Albumin/Globulin Ratio 0.8 L 10/10/18 15:25: Lactate 1.1 10/10/18 15:25: Mycoplasma pneumon IgM Non-reactive 10/10/18 15:25: D-Dimer 134 10/10/18 15:25: B-Natriuretic Peptide < 5 01/16/19 15:50: Chlamy pneumoniae PCR Not detected, Adenovirus (PCR) Not detected, B. pertussis DNA (PCR) Not detected, Coronavirus OC43 (PCR) Not detected, Coronavirus HKU1 (PCR) Not detected, Coronavirus 229E (PCR) Not detected, Coronavirus NL63 (PCR) Not detected, Human Metapneumovir PCR Not detected, Influenza A (H1) PCR Not detected, Influ A (H1N1/09) PCR Not detected, Influenza A (H3) PCR Not detected, Influenza Type A (PCR) Not detected, Influenza Type B (PCR) Not detected, M. pneumoniae (PCR) Not detected, Parainfluenza 1 (PCR) Not detected, Parainfluenza 2 (PCR) Not detected, Parainfluenza 3 (PCR) Not detected, Parainfluenza 4 (PCR) Not detected, RSV (PCR) Detected A, Entero/Rhino (PCR) Not detected I & O for Last 24 hours: Intake & Output 10/08/18 10/09/18 10/10/18 10/11/18 11:59 11:59 11:59 11:59 Intake Total 240 / 240 Output Total 1050 / 1050 Balance -810 / -810 Weight 221 lb 4 oz Radiology Reports for the Last 24 Hours: Venous Doppler 1. There is no evidence of significant Reflux. 2. No evidence of deep or superficial vein thrombosis involving the right lower extremity and left lower extremity CTA 1. No evidence of pulmonary embolus, aortic aneurysm, or dissection. 2. Small area of atelectasis or infiltrate in the left upper lobe and lingula. 3. Mild mediastinal adenopathy - Constitutional no acute distress - *Routine Respiratory Exam Present: wheezes (much less wheezing). Absent: rales - *Routine Cardiovascular Exam Present: RRR - *Routine Abdominal Exam Present: soft, normoactive bowel sounds. Absent: tenderness - *Routine Extremities Exam Present: edema (1+ lower extremity edema bilaterally) Assessment and Plan (1) RSV (respiratory syncytial virus infection) Current visit: Yes Status: Acute Category: Medical Code(s): B97.4 - Respiratory syncytial virus as the cause of diseases classified elsewhere (2) Pneumonia Current visit: No Status: Acute Category: Medical Code(s): J18.9 - Pneumonia, unspecified organism (3) Hypoxia Current visit: No Status: Acute Category: Medical Code(s): R09.02 - Hypoxemia (4) Bilateral lower extremity edema Current visit: Yes Status: Acute Category: Medical Code(s): R60.0 - Localized edema (5) Asthma with acute exacerbation Current visit: No Status: Acute Category: Medical Code(s): J45.901 - Unspecified asthma with (acute) exacerbation (6) History of drug abuse Current visit: No Status: Chronic Category: Medical Code(s): Z87.898 - Personal history of other specified conditions (7) Tobacco abuse Current visit: No Status: Chronic Category: Medical Code(s): Z72.0 - Tobacco use - Assessment and plan all Dx Assessment and Plan for all problems:: Pt is improving. Will continue current treatment. <Rickie Sam - Last Filed: 10/11/18 17:34> Exam Vital signs and Labs for Last 24 Hours: Temp Pulse Resp BP Pulse Ox 98.1 F 95 H 22 132/71 94 L 10/11/18 16:00 10/11/18 17:03 10/11/18 16:00 10/11/18 16:00 10/11/18 17:03 I & O for Last 24 hours: Intake & Output 10/09/18 10/10/18 10/11/18 10/12/18 11:59 11:59 11:59 11:59 Intake Total 480 / 480 360 / 360 Output Total 1550 / 1550 300 / 300 Balance -1070 / -1070 60 / 60 Weight 221 lb 4 oz Assessment and Plan (1) Acute respiratory failure with hypoxia Current visit: Yes Status: Acute Category: Medical Code(s): J96.01 - Acute respiratory failure with hypoxia (2) RSV (respiratory syncytial virus infection) Current visit: Yes Status: Acute Category: Medical Code(s): B97.4 - Respiratory syncytial virus as the cause of diseases classified elsewhere (3) Pneumonia Current visit: No Status: Acute Category: Medical Code(s): J18.9 - Pneumonia, unspecified organism (4) Hypoxia Current visit: No Status: Acute Category: Medical Code(s): R09.02 - Hypoxemia (5) Bilateral lower extremity edema Current visit: Yes Status: Acute Category: Medical Code(s): R60.0 - Localized edema (6) Asthma with acute exacerbation Current visit: No Status: Acute Category: Medical Code(s): J45.901 - Unspecified asthma with (acute) exacerbation (7) History of drug abuse Current visit: No Status: Chronic Category: Medical Code(s): Z87.898 - Personal history of other specified conditions (8) Tobacco abuse Current visit: No Status: Chronic Category: Medical Code(s): Z72.0 - Tobacco use - Assessment and plan all Dx Assessment and Plan for all problems:: Patient seen and examined this AM. Concur with above assessment and plan.
--- NOTE | 2018-10-11 16:13 | Cardiology Report ---
PROCEDURE: 2-D M-mode and color Doppler study INDICATIONS FOR THE TEST: Chest pain COPD Heart Murmur Tobacco Smoking+ Palpitations Fatigue+ Syncope Edema+ Hypertension Diabetes Mellitus Rheumatic Fever SOB+VALDES+Obesity+Hyperlipidemia Family History HD+ Additional History Asthma, Hypoxia, hx of substance abuse PATIENT INFORMATION HEIGHT: 64 WEIGHT: 229 GENDER: Female B/P: 116/76 2-D/M-MODE INTERPRETATION: 2-D MEASUREMENTS OBSERVED VALUES IN CMS Right Ventricular Dimension (RVDd) 1.7 Interventricular Septum (Thickness)(IVsd) 0.8 Left Ventricular Internal Dimensions(LVIDd) 4.4 Left Ventricular Posterior Wall (Thickness)(LVPWd) 0.9 Aortic Root 3.1 Aortic Cusp Separation 2.1 Left Atrial Dimensions (LAD) 3.0 2D 1. Technically very difficult study because of the patient's factor and poor acoustic windows, repeat study with Definity contrast is recommended. 2. The left atrium is normal size, left ventricle is normal size, probably preserved left ventricular systolic function, visually estimated ejection fraction 55% with no regional wall motion abnormality. Endocardial surface of poorly visualized. 3. The right atrium and right ventricle are normal size and contractility. 4. The aortic, mitral and tricuspid valve are poorly visualized. 5. The pulmonic valve is poorly present. 6. No significant pericardial effusion noted. DOPPLER INTERROGATION: Doppler interrogation of the aortic, mitral and tricuspid valve reveals presence of mild mitral and tricuspid regurgitation, tricuspid regurgitation jet velocity is inadequate for calculation of the right ventricular systolic pressure, diastolic parameters are within normal range. CONCLUSION: 1. Technically difficult and poor study, repeat study with definitely contrast is recommended. 2. Normal left ventricular size, probably preserved left ventricular systolic function, visually estimated ejection fraction 55% with no regional wall motion abnormality, diastolic parameters are within normal range. 3. Mild mitral and tricuspid regurgitation 4. No significant pericardial effusion noted.
--- NOTE | 2018-10-12 08:30 | Progress Note ---
<Alina Nolan - Last Filed: 10/12/18 08:27> Internal Medicine - PN: Subj *Date: 10/12/18 *Time: 08:28 Interval history: Patient is feeling a little bit better today. She states she slept for a few hours last night but the steroids are keeping her up. She is still wheezing but is less short of breath. She states she did take a shower last night and her oxygen dropped to 83%. Exam Vital signs and Labs for Last 24 Hours: Temp Pulse Resp BP Pulse Ox 97.8 F 84 18 114/72 94 L 10/12/18 04:00 10/12/18 06:38 10/12/18 04:00 10/12/18 04:00 10/12/18 06:38 I & O for Last 24 hours: Intake & Output 10/09/18 10/10/18 10/11/18 10/12/18 11:59 11:59 11:59 11:59 Intake Total 480 / 480 600 / 600 Output Total 1550 / 1550 700 / 700 Balance -1070 / -1070 -100 / -100 Weight 221 lb 4 oz Radiology Reports for the Last 24 Hours: Echo 1. Technically difficult and poor study, repeat study with definitely contrast is recommended. 2. Normal left ventricular size, probably preserved left ventricular systolic function, visually estimated ejection fraction 55% with no regional wall motion abnormality, diastolic parameters are within normal range. 3. Mild mitral and tricuspid regurgitation 4. No significant pericardial effusion noted. - Constitutional no acute distress - *Routine Respiratory Exam Present: wheezes. Absent: rales - *Routine Cardiovascular Exam Present: RRR - *Routine Abdominal Exam Present: soft, normoactive bowel sounds. Absent: tenderness - *Routine Extremities Exam Present: edema (1+ pretibial edema bilaterally) Assessment and Plan (1) Acute respiratory failure with hypoxia Current visit: Yes Status: Acute Category: Medical Code(s): J96.01 - Acute respiratory failure with hypoxia (2) RSV (respiratory syncytial virus infection) Current visit: Yes Status: Acute Category: Medical Code(s): B97.4 - Respiratory syncytial virus as the cause of diseases classified elsewhere (3) Pneumonia Current visit: No Status: Acute Category: Medical Code(s): J18.9 - Pneumonia, unspecified organism (4) Hypoxia Current visit: No Status: Acute Category: Medical Code(s): R09.02 - Hypoxemia (5) Bilateral lower extremity edema Current visit: Yes Status: Acute Category: Medical Code(s): R60.0 - Localized edema (6) Asthma with acute exacerbation Current visit: No Status: Acute Category: Medical Code(s): J45.901 - Unspecified asthma with (acute) exacerbation (7) History of drug abuse Current visit: No Status: Chronic Category: Medical Code(s): Z87.898 - Personal history of other specified conditions (8) Tobacco abuse Current visit: No Status: Chronic Category: Medical Code(s): Z72.0 - Tobacco use - Assessment and plan all Dx Assessment and Plan for all problems:: Will discuss starting to wean oxygen and steroids with Dr. Sam. Echo reviewed and it is recommended in the report to repeat this study. Will discuss this with Dr. Sam as well. Patient is improving slowly. <Rickie Sam - Last Filed: 10/12/18 08:55> Exam Vital signs and Labs for Last 24 Hours: Temp Pulse Resp BP Pulse Ox 97.8 F 84 18 114/72 94 L 10/12/18 04:00 10/12/18 06:38 10/12/18 04:00 10/12/18 04:00 10/12/18 06:38 I & O for Last 24 hours: Intake & Output 10/09/18 10/10/18 10/11/18 10/12/18 11:59 11:59 11:59 11:59 Intake Total 480 / 480 600 / 600 Output Total 1550 / 1550 700 / 700 Balance -1070 / -1070 -100 / -100 Weight 221 lb 4 oz Assessment and Plan (1) Acute respiratory failure with hypoxia Current visit: Yes Status: Acute Category: Medical Code(s): J96.01 - Acute respiratory failure with hypoxia (2) RSV (respiratory syncytial virus infection) Current visit: Yes Status: Acute Category: Medical Code(s): B97.4 - Respiratory syncytial virus as the cause of diseases classified elsewhere (3) Pneumonia Current visit: No Status: Acute Category: Medical Code(s): J18.9 - Pneumonia, unspecified organism (4) Hypoxia Current visit: No Status: Acute Category: Medical Code(s): R09.02 - Hypoxemia (5) Bilateral lower extremity edema Current visit: Yes Status: Acute Category: Medical Code(s): R60.0 - Localized edema (6) Asthma with acute exacerbation Current visit: No Status: Acute Category: Medical Code(s): J45.901 - Unspecified asthma with (acute) exacerbation (7) History of drug abuse Current visit: No Status: Chronic Category: Medical Code(s): Z87.898 - Personal history of other specified conditions (8) Tobacco abuse Current visit: No Status: Chronic Category: Medical Code(s): Z72.0 - Tobacco use - Assessment and plan all Dx Assessment and Plan for all problems:: Patient seen and examined. Clinically improved but still hypoxemic on RA. Will repeat CXR, wean O2 and steroids.
--- NOTE | 2018-10-13 08:26 | Progress Note ---
<Alina Nolan - Last Filed: 10/13/18 08:22> Internal Medicine - PN: Subj *Date: 10/13/18 *Time: 08:23 Interval history: Patient is feeling much better today. She has less wheezing. She has been off of her oxygen since last night and her sats are in the 90s. The swelling in her legs has decreased and the redness is improving. She slept better last night and is eating well this morning. She is anxious to go home. Exam Vital signs and Labs for Last 24 Hours: Temp Pulse Resp BP Pulse Ox 98.0 F 100 H 18 130/91 H 91 L 10/13/18 08:00 10/13/18 08:00 10/13/18 08:00 10/13/18 08:00 10/13/18 08:00 I & O for Last 24 hours: Intake & Output 10/10/18 10/11/18 10/12/18 10/13/18 11:59 11:59 11:59 11:59 Intake Total 480 / 480 1080 / 1080 1740 / 1740 Output Total 1550 / 1550 700 / 700 400 / 400 Balance -1070 / -1070 380 / 380 1340 / 1340 Weight 221 lb 4 oz 221 lb 4 oz 211 lb 2 oz Microbiology Reports for the Last 24 Hours: Microbiology 10/10/18 15:50 Blood Blood Culture - Preliminary NO GROWTH AFTER 48 HOURS 10/10/18 15:25 Blood Blood Culture - Preliminary NO GROWTH AFTER 48 HOURS - Constitutional no acute distress - *Routine Respiratory Exam Present: wheezes. Absent: crackles - *Routine Cardiovascular Exam Present: RRR - *Routine Abdominal Exam Present: soft, normoactive bowel sounds. Absent: tenderness - *Routine Extremities Exam Present: edema (trace leg edema bilaterally, still with minimal erythema over the hsu area) - *Routine Neurological Exam Present: alert, oriented X3 Assessment and Plan (1) Acute respiratory failure with hypoxia Current visit: Yes Status: Acute Category: Medical Code(s): J96.01 - Acute respiratory failure with hypoxia (2) RSV (respiratory syncytial virus infection) Current visit: Yes Status: Acute Category: Medical Code(s): B97.4 - Respiratory syncytial virus as the cause of diseases classified elsewhere (3) Pneumonia Current visit: No Status: Acute Category: Medical Code(s): J18.9 - Pneumonia, unspecified organism (4) Hypoxia Current visit: No Status: Acute Category: Medical Code(s): R09.02 - Hypoxemia (5) Bilateral lower extremity edema Current visit: Yes Status: Acute Category: Medical Code(s): R60.0 - Localized edema (6) Asthma with acute exacerbation Current visit: No Status: Acute Category: Medical Code(s): J45.901 - Unspecified asthma with (acute) exacerbation (7) History of drug abuse Current visit: No Status: Chronic Category: Medical Code(s): Z87.898 - Personal history of other specified conditions (8) Tobacco abuse Current visit: No Status: Chronic Category: Medical Code(s): Z72.0 - Tobacco use - Assessment and plan all Dx Assessment and Plan for all problems:: Patient is stable to be discharged today on oral steroids, nebs, and breo for asthma control. She has a ventolin inhaler at home already. She will need need to f/u in the office on Monday. <Rickie Sam - Last Filed: 10/13/18 10:16> Exam Vital signs and Labs for Last 24 Hours: Temp Pulse Resp BP Pulse Ox 98.0 F 100 H 18 130/91 H 91 L 10/13/18 08:00 10/13/18 08:00 10/13/18 08:00 10/13/18 08:00 10/13/18 08:00 I & O for Last 24 hours: Intake & Output 10/10/18 10/11/18 10/12/18 10/13/18 11:59 11:59 11:59 11:59 Intake Total 480 / 480 1080 / 1080 1740 / 1740 Output Total 1550 / 1550 700 / 700 400 / 400 Balance -1070 / -1070 380 / 380 1340 / 1340 Weight 221 lb 4 oz 221 lb 4 oz 211 lb 2 oz Microbiology Reports for the Last 24 Hours: Microbiology 10/10/18 15:50 Blood Blood Culture - Preliminary NO GROWTH AFTER 48 HOURS 10/10/18 15:25 Blood Blood Culture - Preliminary NO GROWTH AFTER 48 HOURS Assessment and Plan (1) Acute respiratory failure with hypoxia Current visit: Yes Status: Acute Category: Medical Code(s): J96.01 - Acute respiratory failure with hypoxia (2) RSV (respiratory syncytial virus infection) Current visit: Yes Status: Acute Category: Medical Code(s): B97.4 - Respiratory syncytial virus as the cause of diseases classified elsewhere (3) Pneumonia Current visit: No Status: Acute Category: Medical Code(s): J18.9 - Pneumonia, unspecified organism (4) Hypoxia Current visit: No Status: Acute Category: Medical Code(s): R09.02 - Hypoxemia (5) Bilateral lower extremity edema Current visit: Yes Status: Acute Category: Medical Code(s): R60.0 - Localized edema (6) Asthma with acute exacerbation Current visit: No Status: Acute Category: Medical Code(s): J45.901 - Unspecified asthma with (acute) exacerbation (7) History of drug abuse Current visit: No Status: Chronic Category: Medical Code(s): Z87.898 - Personal history of other specified conditions (8) Tobacco abuse Current visit: No Status: Chronic Category: Medical Code(s): Z72.0 - Tobacco use - Assessment and plan all Dx Assessment and Plan for all problems:: Patient seen and examined. She is much improved and I concur with plan for discharge.
--- NOTE | 2018-10-13 09:52 | Discharge Summary ---
General - General Admission date:: 10/10/18 <Rickie Sam - 10/25/18 18:10> 10/10/18 <Alina Nolan - 10/13/18 10:54> Discharge date: 10/13/18 <Alina Nolan - 10/13/18 10:54> HPI HPI: Ms. Jolly is a 32-year-old female with a history of drug abuse who is currently on methadone, asthma, and tobacco abuse. She was just recently discharged from [facility] after an admission for pneumonia. The patient states she improved and was feeling well up until yesterday when she began getting short of breath and developed a cough. She began wheezing and used her inhaler at home with no relief. She went to her methadone clinic this morning and they checked her oxygen and it was 84% on room air. They felt she looked slightly dehydrated and gave her some water and she vomited. They felt she needed to be seen by her family physician, therefore she presented to our office. Her oxygen was 84% on room air in the office and increased to 88% after a nebulizer treatment. She also has had lower extremity edema for the past month and states her lower legs have been getting red. She was admitted and started on IV antibiotics, duo nebs, oxygen, and Phenergan. <Alina Nolan - 10/14/18 16:02> Hospital Course Hospital Course: Bilateral venous Doppler and CTA were negative for DVT/PE. The CTA did show a LAW and lingular pneumonia. The patient was started on zithromax, rocephin, duonebs, and IV steroids. She had a PCR respiratory panel that was positive for RSV. She had an echo that showed an EF of 55%. A repeat CXR showed a left perihilar infiltrate extending to the lingula and LLL. Her symptoms did improve and she was able to be weaned off of nasal oxygen with sats in the low 90's. She had no further vomiting. The swelling in her legs decreased with GIRISH hose and elevation. Her steroids were weaned and she began sleeping better. She was stable to be discharged home on oral steroids, nebs, and breo for asthma control. She has a ventolin inhaler at home already. She will need need to f/u in the office on Monday. <Alina Nolan - 10/14/18 16:02> Objective Vital signs: Temp Pulse Resp BP Pulse Ox 98.0 F 100 H 18 130/91 H 91 L 10/13/18 08:00 10/13/18 08:00 10/13/18 08:00 10/13/18 08:00 10/13/18 08:00 <Rickie Sam - 10/25/18 18:10> Temp Pulse Resp BP Pulse Ox 98.0 F 100 H 18 130/91 H 91 L 10/13/18 08:00 10/13/18 08:00 10/13/18 08:00 10/13/18 08:00 10/13/18 08:00 <IlirriveraAlina - 10/13/18 10:54> Narrative: - Constitutional Comments: Does not appear to feel well - *Routine HEENT Exam Head: Present: normocephalic, atraumatic Eye: Present: EOMI, PERRL ENT: Present: mucous membranes dry - *Routine Neck Exam Present: supple. Absent: lymphadenopathy - *Routine Respiratory Exam Present: wheezes. Absent: rales - *Routine Cardiovascular Exam Present: RRR, tachycardia - *Routine Abdominal Exam Present: soft, normoactive bowel sounds. Absent: tenderness - *Routine Extremities Exam Present: edema (2-3+ bilateral LE edema) - *Routine Skin Exam Present: warm. Absent: rash - *Routine Neurological Exam Present: alert, oriented X3 <IlirriveraAlina - 10/14/18 16:02> Results Labs on day of discharge: Preliminary micro results at discharge 10/10/18 15:50 Blood Culture - Preliminary Blood NO GROWTH AFTER 48 HOURS 10/10/18 15:25 Blood Culture - Preliminary Blood NO GROWTH AFTER 48 HOURS <Alina Nolan - 10/13/18 10:54> DS: Diagnosis - Discharge Diagnosis (1) Acute respiratory failure with hypoxia Status: Acute (2) RSV (respiratory syncytial virus infection) Status: Acute (3) Pneumonia Status: Acute (4) Hypoxia Status: Acute (5) Bilateral lower extremity edema Status: Acute (6) Asthma with acute exacerbation Status: Acute (7) History of drug abuse Status: Chronic (8) Tobacco abuse Status: Chronic <Alina Nolan - 10/14/18 15:57> (1) Acute respiratory failure with hypoxia Status: Acute (2) RSV (respiratory syncytial virus infection) Status: Acute (3) Pneumonia Status: Acute (4) Hypoxia Status: Acute (5) Bilateral lower extremity edema Status: Acute (6) Asthma with acute exacerbation Status: Acute (7) History of drug abuse Status: Chronic (8) Tobacco abuse Status: Chronic <Rickie Sam - 10/25/18 18:10> Discharge Plan - Patient Discharge Instructions ACTIVITY: Continue current activity <Alina Nolan - 10/13/18 10:54> DIET: continue same diet <Alina Nolan - 10/13/18 10:54> Patient Instructions: DI for Asthma -- Adult, DI for Pneumonia -- Adult, DI for Respiratory Syncytial Virus -- Adults, DI for Hypoxia <Rickie Sam - 10/25/18 18:10> Forms: <Rickie Sam - 10/25/18 18:10> - Follow up Plan Follow up with: Rickie Sam MD [Primary Care Provider] - 10/16/18 <Rickie Sam - 10/25/18 18:10> Disposition: Home, Self-Care <Rickie Sam - 10/25/18 18:10> Home Medications: Home Medications Medication Instructions Recorded Confirmed Type RX: Methadone HCl 100 mg PO DAILY 08/30/18 10/11/18 History RX: Albuterol Sulfate 2 puffs IH QID 10/10/18 10/11/18 History [Proventil-HFA 90mcg/puff Inh] Fluticasone/Vilanterol [Breo 1 inh IH DAILY #1 device 10/13/18 Rx Ellipta 200-25 Mcg INH] Ipratropium/Albuterol Sulfate 3 ml IH QID #120 neb 10/13/18 Rx [Duoneb 3mL neb] RX: Nebulizer and Compressor 1 each MC QID #1 each 10/13/18 Rx [Portable Nebulizer System] methylPREDNISolone [Medrol] 4 mg PO DIRECTED #1 tab.ds.pk 10/13/18 Rx <Rickie Sam - 10/25/18 18:10> Prescriptions/Medication Reconciliation: New Fluticasone/Vilanterol [Breo Ellipta 200-25 Mcg INH] 1 inh IH DAILY #1 device Ipratropium/Albuterol Sulfate [Duoneb 3mL neb] 3 ml IH QID #120 neb methylPREDNISolone [Medrol] 4 mg PO DIRECTED #1 tab.ds.pk RX: Nebulizer and Compressor [Portable Nebulizer System] 1 each MC QID #1 each Continue RX: Albuterol Sulfate [Proventil-HFA 90mcg/puff Inh] 2 puffs IH QID RX: Methadone HCl 100 mg PO DAILY <Rickie Sam - 10/25/18 18:10> - Additional Information Additional Information: Concur with plan for discharge. <Rickie Sam - 10/25/18 18:10>
== END 2018-10-13 11:50 | disposition home or self-care (01) | DRG 189 ==
LOC: 2ND → OBSVTOIN 14:51
PROVIDERS: ADMIT Emergency Medicine; ATTEND Family Medicine
DX: F19.11 Other psychoactive substance abuse, in remission; J45.901 Unspecified asthma with (acute) exacerbation; J18.9 Pneumonia, unspecified organism; Z72.0 Tobacco use; J96.01 Acute respiratory failure with hypoxia; B97.4 Respiratory syncytial virus as the cause of diseases classified elsewhere
CPT/HCPCS: 36415; 71020; 71046; 71275; 80053; 83605; 83880; 85025; 85378; 86738; 87040; 87486; 87581; 87633; 87798; 93306; 93970; 94640; 94761; J0456; Q9967

== ENCOUNTER → 2022-10-06 09:43 | Outpatient (CLI) | payer MEDICAID, SELFPAY ==
[2022-10-06 10:26] LABS: Basophils # 0.1 K/mm3 (0-0.2); Basophils % 1.7 % (0.1-2.0); Eosinophils # 0.2 K/mm3 (0.0-0.4); Eosinophils % 2.9 % (0.1-12.0); Hematocrit 38.7 % (37.0-47.0); Hemoglobin 12.3 g/dL (12.2-16.2); Lymphocytes # 1.9 K/mm3 (0.7-4.5); Lymphocytes % 30.5 % (10-50); Mean Corpuscular HGB Conc 31.8 g/dL (31.8-35.4); Mean Corpuscular Hemoglobin 27.6 pg (27.0-31.2); Mean Corpuscular Volume 86.6 fl (81-99); Mean Platelet Volume 8.1 fl (7.4-10.4); Monocytes # 0.3 K/mm3 (0.1-1.0); Monocytes % 5.2 % (1.7-9.3); Neutrophils # 3.7 K/mm3 (1.8-7.8); Neutrophils % 59.7 % (37.0-80.0); Platelet Count 364 K/mm3 (142-424); Red Blood Count 4.46 M/mm3 (4.20-5.40); White Blood Count 6.2 K/mm3 (4.8-10.8)
[2022-10-06 10:53] LABS: Chloride 102 mmol/L (98-107)
[2022-10-06 10:54] LABS: Potassium 4.3 mmoL/L (3.5-5.1); Sodium 140 mmol/L (136-145)
[2022-10-06 10:56] LABS: Alanine Aminotransferase 26 U/L (12-78); Alkaline Phosphatase 72 U/L (38-126); Anion Gap 11.3 mEq/L (5-15); Aspartate Amino Transferase 25 U/L (14-36); Bilirubin,Total 1.1 mg/dl (0.2-1.3); Blood Urea Nitrogen 11 mg/dl (7-17); Carbon Dioxide 31 mmol/L (22.0-30.0); Estimated Glomerular Filt Rate 112 ml/min (>60); GFR (African American) 136 ML/MIN (>60)
[2022-10-06 10:57] LABS: Albumin Level 3.8 g/dl (3.5-5.0); Albumin/Globulin Ratio 1.1 (1.1-1.8); Calcium 8.5 mg/dl (8.4-10.2); Chol/HDL Ratio 4.2 (1-3.5); Cholesterol 173 mg/dl (140-200); Globulin 3.4 g/dL (1.3-3.2); Glucose 93 mg/dl (74-100); HDL Cholesterol 41 mg/dl (40-60); Iron 58 ug/dL (37-170); Total Protein,Serum 7.2 g/dl (6.3-8.2); Triglycerides 125 mg/dl (30-150); VLDL Cholesterol 25 mg/dL (0-40)
[2022-10-06 11:08] LABS: Direct LDL Cholesterol 101.81 mg/dL (100-129)
[2022-10-06 11:18] LABS: Total Iron Binding Capacity 400 ug/dL (265-497)
[2022-10-06 11:26] LABS: Free T4 (Free Thyroxine) 0.99 ng/dl (0.78-2.19)
[2022-10-06 11:44] LABS: Ferritin 13.1 ng/ml (6.24-137)
[2022-10-06 13:41] LABS: 25-OH Vitamin D, Total < 12.8 ng/mL (30-100)
== END ==
PROVIDERS: PCP Emergency Medicine; Visit Provider Emergency Medicine
DX: K52.9 Noninfective gastroenteritis and colitis, unspecified (principal); R53.83 Other fatigue; E55.9 Vitamin D deficiency, unspecified
CPT/HCPCS: 36415; 80053; 80061; 82306; 82728; 83540; 83550; 84439; 84443; 85025

== ENCOUNTER → 2022-10-11 09:51 | Outpatient (CLI) | payer MEDICAID, SELFPAY ==
--- NOTE | 2022-10-11 09:54 | XR_ITS ---
FINAL REPORT CLINICAL HISTORY: cough COMPARISON: 10/12/2018 FINDINGS: PA and lateral views of the chest were obtained. The cardiac and mediastinal silhouettes are within normal limits. The lungs are clear. There is no pleural effusion or pneumothorax. No acute osseous abnormality is identified. IMPRESSION: No radiographic evidence of acute cardiac or pulmonary disease. Reviewed, Interpreted and Dictated by Michelle Alex MD Transcribed by Nona Abbott Authenticated and [facility]
== END ==
PROVIDERS: PCP Emergency Medicine; Visit Provider Emergency Medicine
DX: R05.9 Cough, unspecified (principal)
CPT/HCPCS: 71046

== ENCOUNTER → 2023-03-24 12:42 | Outpatient (CLI) | payer OTHER, SELFPAY ==
--- NOTE | 2023-03-24 13:00 | US_ITS ---
FINAL REPORT CLINICAL HISTORY: Foot numbness, bilateral discoloration of feet, current smoker, bilateral rest pain FINDINGS: ANKLE-BRACHIAL PRESSURE INDICES Pressure indices are as follows: RIGHT LOWER EXTREMITY: Ankle-brachial pressure index: 1.14 Comments: Normal LEFT LOWER EXTREMITY: Ankle-brachial pressure index: 1.17 Comments: Normal IMPRESSION: No evidence of significant obstructive peripheral vascular disease of the lower extremities Reviewed, Interpreted and Dictated by Kale Gonzalez III, MD Transcribed by Paola Macias Authenticated and [facility]
== END ==
PROVIDERS: PCP Emergency Medicine; Visit Provider Nurse Practitioner Family
DX: M79.672 Pain in left foot (principal); R20.0 Anesthesia of skin; G62.9 Polyneuropathy, unspecified
CPT/HCPCS: 93923